=== PATIENT | female | born 1930 | race Caucasian/White ===

== ENCOUNTER → 2017-08-19 13:22 | Outpatient (CLI) | payer MEDICARE, OTHER | END | disposition home or self-care (01) | LOC: D.US 13:22 | DX: R10.9 Unspecified abdominal pain (principal); R30.0 Dysuria ==

== ENCOUNTER → 2018-07-27 16:39 | Outpatient (CLI) | payer MEDICARE, OTHER | END | disposition home or self-care (01) | LOC: D.LABREF 16:39 → D.RAD 16:39 | DX: N20.0 Calculus of kidney (principal) ==

== ENCOUNTER → 2018-07-27 18:11 | Outpatient (CLI) | payer MEDICARE, OTHER | END | disposition home or self-care (01) | LOC: D.LABREF 18:11 | DX: D72.829 Elevated white blood cell count, unspecified (principal); R31.9 Hematuria, unspecified ==

== ENCOUNTER → 2018-08-02 09:35 | Outpatient (CLI) | payer MEDICARE, OTHER | END | disposition home or self-care (01) | LOC: D.CT 09:30 | DX: N20.0 Calculus of kidney (principal) ==

== ENCOUNTER → 2018-09-12 09:58 | Outpatient (CLI) | payer MEDICARE, OTHER | END | disposition home or self-care (01) | LOC: D.CT 09:58 | DX: N20.0 Calculus of kidney (principal) ==

== ENCOUNTER → 2018-09-22 11:51 | Outpatient (CLI) | payer MEDICARE, OTHER | END | disposition home or self-care (01) | LOC: D.LABREF 11:51 | DX: N39.0 Urinary tract infection, site not specified (principal) ==

== ENCOUNTER 2018-09-29 08:54 | Inpatient (IN) | payer MEDICARE, OTHER ==
[2018-09-27 15:49] LABS: BASOPHILS 0.4 % (0-2); EOSINOPHILS 2.3 % (0-7); HEMATOCRIT 43.3 % (36.0-48.0); HEMOGLOBIN 14.1 g/dL (12-16); IMMATURE GRANULOCYTES 0.1 % (0-5); LYMPHOCYTES 33.1 % (15-50); MCH 29.1 pg (26.0-34.0); MCHC 32.6 g/dL (31.0-37.0); MCV 89.5 fL (80.0-100.0); MEAN PLATELET VOLUME 10.9 fL (7.4-10.4); MONOCYTES 8.4 % (2-11); NEUTROPHILS 55.7 % (40-80); PLATELET COUNT 218 10x3/uL (130-400); RBC 4.84 10x6/uL (4.00-5.40); RDW 14.8 % (11.5-14.5); WBC 8.3 10x3/uL (4.8-10.8)
[2018-09-27 16:00] LABS: APTT 30.8 SECONDS (22.8-39.4); CALCIUM 8.8 mg/dL (8.5-10.1); CARBON DIOXIDE 29.7 mmol/L (21.0-32.0); CREATININE - SERUM 1.1 mg/dL (0.6-1.3); INR 1.07 (0.85-1.17); POTASSIUM - SERUM 3.7 mmol/L (3.5-5.1); PROTIME 13.4 SECONDS (11.6-15.0)
[2018-09-29] VITALS (8 sets, daily range): BP systolic 132–166; BP diastolic 57–71; Ht 170.2 cm; Wt 71.8 kg
[~2018-09-29] VITALS: Ht 170.2 cm; Wt 71.8 kg
--- NOTE | ~2018-09-29 | HEMODYNAMI ---
PATIENT:JANNA PURCELL MEDICAL RECORD: [id number] : 32 LOCATION:[facility] ADMISSION DATE: 09/29/18 Generatedon:09/29/201812:17 Patient name: JANNA PURCELL Patient #: [id number] SSN: : Date of study: 09/29/2018 Page: Of Hemodynamic Procedure Report Patient Data Patient Demographics Procedure consent was obtained First Name: JANNA Gender: Female Last Name: BINH : 1930 Patient #: [id number] Age: 88 year(s) Race: Unknown Additional ID: [id number] Contact details Address: [address] [place] [address] State: [place] City: [place] Zip code: [address] Past Medical History Allergies Allergen Reaction Date Comments Reported Demerol Other 09/29/2018 Admission Admission Data Admission Date: 09/29/2018 Admission Time: 8:54 Procedure Procedure Types Cath Procedure Peripheral Cath Diagnostic Procedure Miscellaneous Procedure Description Procedure Date Procedure Date: 09/29/2018 Procedure Start Time: 11:48 Procedure End Time: 12:16 Procedure Staff Name Function José Manuel Negron MD Performing Physician Bernice Gracia Monitor Wilbur Trujillo RT Scrub Hiral Parsons RN Nurse Procedure Data Cath Procedure Fluoroscopy Diagnostic fluoroscopy Total fluoroscopy Time: 4.9 time: 4.9 min min Diagnostic fluoroscopy Total fluoroscopy dose: 59 dose: 59 mGy mGy Contrast Material Contrast Material Type Amount (ml) Isovue 300 15 Procedure Medications Medication Administration Route Dosage Heparin Flush Bag added to field 1 bags (1000units/500ml NS) Lidocaine 1% added to field 20 unlisted medication 1 Versed I.V. 1 mg Fentanyl I.V. 50 mcg Versed I.V. 1 mg Fentanyl I.V. 50 mcg Hemodynamics Rest Heart Rate: 56 (bpm) Snapshots Pre Cath Intra NCS Post Cath Vital Signs Time Heart Resp SPO2 etCO2 NIBP (mmHg) Rhythm Pain Sedation Rate (ipm) (%) (mmHg) Status Level (bpm) 11:22:14 57 8 100 44.4 Measuring NSR 0 (11) 10(A) , No pain 11:23:19 61 20 100 39.9 187/94(120) NSR 0 (11) 10(A) , No pain 11:28:18 56 11 100 33.9 Measuring NSR 0 (11) 10(A) , No pain 11:28:43 55 12 100 36.1 180/78(115) NSR 0 (11) 10(A) , No pain 11:33:07 48 10 100 34.6 181/79(153) NSR 0 (11) 10(A) , No pain 11:37:35 49 13 99 30.8 175/78(117) NSR 0 (11) 10(A) , No pain 11:42:35 51 13 100 44.4 Measuring NSR 0 (11) 10(A) , No pain 11:43:05 46 13 100 41.4 169/70(96) NSR 0 (11) 10(A) , No pain 11:47:32 71 12 100 30.1 172/81(107) NSR 0 (11) 8(A) , No pain 11:51:48 46 19 100 18 155/70(84) NSR 0 (11) 8(A) , No pain 11:56:47 50 22 100 1.5 Measuring NSR 0 (11) 8(A) , No pain 11:56:59 57 14 100 39.8 157/67(125) NSR 0 (11) 8(A) , No pain 12:01:21 60 10 100 42.1 161/77(94) NSR 0 (11) 8(A) , No pain 12:05:47 48 32 100 35.3 178/68(129) NSR 0 (11) 8(A) , No pain 12:10:16 49 11 99 24 152/58(83) NSR 0 (11) 8(A) , No pain 12:14:36 60 10 100 27 164/75(115) NSR 0 (11) 8(A) , No pain Medications Time Medication Route Dose Verified Delivered Reason Notes Effe ctiveness by by 11:28:57 Heparin Flush added 1 José Manuel Georges used for Bag to bags Jamil Negron MD procedure (1000units/500ml field NS) 11:29:09 Lidocaine 1% added 20ml José Manuel Georges for local to vial Jamil Negron MD anesthetic field 11:29:34 cefepime iv 1 gm José Manuel Blackman Per Issa Negron RN physician 11:45:30 Versed I.V. 1 mg José Manuel Blackman for Issa Negron RN sedation 11:45:50 Fentanyl I.V. 50 José Manuel Blackman for mcg Issa Negron RN sedation 12:00:19 Versed I.V. 1 mg José Manuel Blackman for Issa Negron RN sedation 12:00:27 Fentanyl I.V. 50 José Manuel Blackman for mcg Issa Negron RN sedation Procedure Log Time Note 11:11:40 Hiral Parsons RN sent for patient. Start room use. 11:11:45 Time tracking: Regular hours (M-F 7:00 - 5:00) 11:11:56 Plan of Care:Hemodynamics will remain stable., Cardiac rhythm will remain stable., Comfort level will be maintained., Respiratory function will remain adequate., Patient/ family verbilizes understanding of procedure., Procedure tolerated without complication., Recovers from procedure without complications.. 11:12:11 Patient received from Outpatients to IR Alert and oriented. Tansferred to table in Prone position. 11:12:13 Warm blankets applied on for patient comfort. 11:12:15 Correct patient and procedure confirmed by team. 11:12:19 Signed procedure consent form obtained from patient. 11:12:21 ECG and BP/O2 sat monitors applied to patient. 11:12:29 Full Disclosure recording started 11:12:31 - 11:13:38 H&P Date Dictated: 09/29/2018 Within 30 days and on chart.. 11:13:41 Pre-procedure instructions explained to patient. 11:13:42 Pre-op teaching completed and patient verbalized understanding. 11:18:23 Family in waiting room. 11:18:34 Patient NPO since Midnight. 11:18:52 Patient allergic to Demerol and influenza virus vaccines, AND PNEUMONIA VACCINE. 11:20:05 Is the patient allergic to Iodine/contrast media? No. 11:20:09 Is patient on blood thinner?No 11:20:14 Patient diabetic? No. 11:20:24 Vital chart was started 11:20:35 Sterile Angiographic Pack opened to sterile field. 11:20:38 Baseline sample Acquired. 11:20:53 ----Pre-sedation anethsthesia assessment.---- 11:20:59 Snore? Yes 11:21:02 Sleep apnea? No 11:21:06 Deviated septum? No 11:21:09 Opens mouth fully? Yes 11:21:12 Sticks out tongue? Yes 11:21:23 Dentures? Yes in tight 11:22:00 IV patent on arrival in right hand with 0.9% NaCl at O. 11:22:21 Right LUMBAR was prepped with chlora-prep and draped in sterile fashion . 11:22:45 Alarms reviewed . 11:22:46 Sharps counted by scrub and verified. 11:23:29 Use device set IR Diagnostic 11:23:34 Bag Decanter (2002S) opened to sterile field. 11:23:41 Tegaderm 4 x 4 (1626W) opened to sterile field. 11:28:57 Heparin Flush Bag (1000units/500ml NS) 1 bags added to field was administered by José Manuel Negron MD; used for procedure; 11:29:09 Lidocaine 1% 20ml vial added to field was administered by José Manuel Negron MD; for local anesthetic; 11:29:34 cefepime 1 gm iv was administered by Hiral Parsons RN; Per physician; 11:29:40 GLIDE CATHETER 5FR ANGLED 65cm (CG507) opened to sterile field. 11:29:42 CHIBA 22 X 15 needle opened to sterile field. 11:29:43 KIT, INTRODUCER ACCUSTICK II W/C ([id number]) opened to sterile field. 11:44:07 Physician arrived 11:44:08 --------ALL STOP TIME OUT------ 11:44:09 Final Timeout: patient, procedure, and site verified with staff and physician. All members of the team are in agreement. 11:45:20 Lumbar site verified by team. 11:45:30 Versed 1 mg I.V. was administered by Hiral Parsons RN; for sedation; 11:45:38 Sedation plan: IV Moderate Sedation Medication:Versed, Fentanyl, Lidocaine 11:45:50 Procedure started. 11:45:50 Fentanyl 50 mcg I.V. was administered by Hiral Parsons RN; for sedation ; 11:48:53 Local anesthetic to Lumbar area with Lidocaine 1% by José Manuel Negron MD.INITIAL ACCESS ONLY 11:49:08 NITINOL .018 80cm wire ([id number]) opened to sterile field. 11:51:27 CHIBA 22 X 15 needle opened to sterile field. 11:53:01 CHIBA NEEDLE IS USED TO ACCESS THE RIGHT KIDNEY. 11:54:19 The nitrex wire is used thru the chiba needle to access the right kidney. 11:58:12 GLIDE WIRE GT DOUBLE ANGLE .018 ([id number]) opened to sterile field. 12:00:19 Versed 1 mg I.V. was administered by Hiral Parsons RN; for sedation; 12:00:27 Fentanyl 50 mcg I.V. was administered by Hiral Parsons RN; for sedation ; 12:00:40 The glidewire gt is used to manuver down the right ureter into the bladder. 12:00:44 Micropuncture VSI 4FR kit opened to sterile field. 12:02:19 GLIDE WIRE Angled Super Stiff 180cm ([id number]) opened to sterile field. 12:06:00 The .035stiff glidewire is inserted in thru the micro introducer system , into the bladder. 12:07:43 The micro system is removed over the wire and a 5fr. glide cath is placed from rt.kidney into bladder. 12:07:52 Procedure ended.(Physican Out) 12:08:58 Fluoroscopy time 04.90 minutes. 12:09:05 Flurop Dose total: 59 12:09:05 Fluoroscopy dose: 59 mGy 12:09:16 Contrast amount:Isovue 300 15ml. 12:09:19 Sharps counted by scrub and verified . 12:09:51 Post-op/insertion site Right Lumbar area dressed using a 4 x 4 and Tegaderm with catheter in right kidney. 12:10:52 Post procedure instruction explained to patient.Patient verbalizes understanding. 12:10:54 Patient needs reinforcement of post procedure teaching. 12:13:09 Procedure and supply charges have been captured, reviewed, submitted an d are correct. 12:14:39 See physician's report for complete and final results. 12:16:20 Report given to Outpatients. 12:16:32 Patient transfered to Outpatients with Stretcher. 12:16:43 Procedure ended. 12:16:43 Full Disclosure recording stopped 12:17:13 Vital chart was stopped Device Usage Item Name Manufacture Quantity Catalog Hospital Part Current Minim al Lot# / Number Charge Number Stock Stock Serial# Code Bag Decanter Microtek 1 2001S [id number] 84553 [id number] 5 () Medical Inc. Sterile Cardinal 1 [id number] 422228 239496 5 Angiographic Health Pack Tegaderm 4 x 3M 1 1626W [id number] 468298 251661 5 4 (1626W) GLIDE Terumo 1 [id number] 592067 397057 5 CATHETER 5FR ANGLED 65cm (CG507) CHIBA 22 X 15 [employer] 2 [id number] 693170 782535 5 [id number] needle [id number] KIT, Charlton 1 [id number] 868982 647176 629964 5 [id number] INTRODUCER Scientific ACCUSTICK II W/C ([id number]) NITINOL .018 Medtronic 1 [id number] 519462 341069 5 80cm wire ([id number]) GLIDE WIRE GT Terumo 1 [id number] 632415 556816 5 DOUBLE ANGLE .018 ([id number]) Micropuncture VSI VASCULAR 1 7266V 805864 916329 5 VSI 4FR kit SOLUTIONS GLIDE WIRE Terumo 1 [id number] 502868 329048 5 Angled Super Stiff 180cm ([id number]) Signature Audit [place] Stage Time Signature Unsigned Intra-Procedure 09/29/2018 Bernice 12:17:10 PM Basil Signatures Monitor : Bernice Signature : Basil Date : Time : [facility] [address] [place] [address]
[~2018-09-29 08:54] MED LIST: GABAPENTIN100 MG PO; OMEPRAZOLE40 MG PO; TENORMIN25 MG PO; XANAX0.5 MG PO; ZOCOR40 MG PO; ZOLOFT100 MG PO; ZYRTEC10 MG PO
--- NOTE | 2018-09-29 20:17 | NUR ---
BOYD CATHETER DC'D IN OR. 300CC EMPTIED FROM BAG DEREK ROMORN
--- NOTE | 2018-09-29 20:53 | NUR ---
CONSULTED ANESTHESIA REGARDING ELEVATED BLOOD PRESSURE 193/85. VERBAL ORDERS RECEIVED FROM LAZARA GIMENEZ CRNA / DR COOK TO ADMINISTER HYDRALAZINE 10MG X1 IN PACU NOW. ORDERS RECEIVED AND IMPLEMENTED. WILL CONTINUE TO MONITOR.
--- NOTE | 2018-09-29 21:13 | NUR ---
PT ARRIVED ON UNIT VIA STRETCHER ESCORTED BY OR NURSE. TRANSFERRED TO BED AND POSITIONED FOR COMFORT. VITALS STABLE. SIGNED OFF WITH OR NURSE.
--- NOTE | 2018-09-29 21:36 | NUR ---
HS MEDICATIONS GIVEN TO INCLUDE MEDICATION FOR PAIN FOR C/O SEVERE PAIN AT 9/10. WILL MONITOR FOR EFFECTIVENESS. FAMILY MEMBERS ARE AT BEDSIDE.
--- NOTE | 2018-09-29 21:50 | NUR ---
PT USED BEDPAN AND VOIDED 100 ML OF BLOODY URINE...HAD DIFFICULTY TURNING DUE TO PAIN. REPLACED BOYD CATHETER 16F PER NEW ORDER WITH IMMEDIATE RETURN OF BLOODY URINE. WILL MONITOR [facility].
--- NOTE | 2018-09-29 23:31 | NUR ---
POST OP VITALS REMAIN STABLE. PT RESTING QUIETLY AT THIS ASSESSMENT.
--- NOTE | 2018-09-30 02:17 | NUR ---
ASSESSED, PT IS ASLEEP WITH EASY RESPIRATIONS AND O2 IN PLACE ORDERED. NO DISTRESS NOTED.
[2018-09-30 05:53] VITALS: BP 109/55; BP 140/80
[2018-09-30 07:30] VITALS: BP 120/50
--- NOTE | 2018-09-30 08:10 | NUR ---
PATIENT RESTING WITH PAIN TOLERABLE NOW WITH NORCO. NEPHROSTOMY TUBE WITH BLOODY DRAINAGE, BOYD WITH BLOOD TINGED URINE.
--- NOTE | 2018-09-30 08:38 | OP ---
PATIENT NAME: JANNA PURCELL MEDICAL RECORD: [id number] :32 LOCATION:[id number] ADMISSION DATE:09/29/18 SURGEON: ULICES LOMAX MD DATE OF OPERATION: 09/29/2018 SURGEON: Ulices Lomax MD ANESTHESIA: General anesthesia byKady. PREOPERATIVE DIAGNOSIS: Right lower pole renal stone, 17 mm. PROCEDURES: Cystoscopy, right percutaneous nephrolithotomy. FINDINGS: Radiolucent renal stones. Stones are small stones clustered in the lower pole bennie. SPECIMENS: Right renal stone. ESTIMATED BLOOD LOSS: Minimal. CLINICAL HISTORY: This is an 88-year-old female who was found to have a large right lower pole renal stone. It was reported as being 17 mm in size on the CT scan. I cultured her urine and it showed only mixed organisms. She has no fever and no signs of pyelonephritis. She does have some episodes of right flank pain. The stone was visible on CT, but not visible on KUB. I then alkalinized her urine, thinking that this might be a uric acid stone. The urine pH reached 7.0 during the treatment time, but the latest CT 1 month later showed that the stone size was unchanged. Therefore, we are proceeding with a right PCNL to remove the stone entirely. She does live alone. She has a sister who lives next door. The plan was for her sister to take care of her postoperatively. She was going to be a 23-hour stay. However, it was told to me just prior to her surgery that her family has taken off on a cruise. Therefore, she would be alone at home. I will be keeping her in the hospital until we can have her nephrostomy tube removed and she no longer needs dressing changes on a frequent basis. SHE IS ALLERGIC TO DEMEROL, PNEUMONIA VACCINE, AND FLU VACCINE. She was given Ancef correctional nurse to the OR. Earlier today, Dr. Negron placed a right nephroureteral access through a mid pole access. DESCRIPTION OF PROCEDURE: The patient was given induction of general anesthesia while in supine position on the stretcher. She was then placed in the frogleg position and prepped and draped. A cystoscope was inserted into the bladder and using grasping forceps, the distal end of the nephroureteral stent was brought out through the urethral meatus. This will allow us to clamp the wire, which we insert from above to prevent its backward migration and eventual loss of the access tract. Once the nephroureteral catheter distal end was brought out through the urethra, we inserted a 16-P[place] Islander Christopher catheter to drain the bladder during the surgery. The patient was then turned into the prone position on the Ac frame. All pressure points were padded. She was then prepped and draped. An Amplatz Super Stiff wire was placed through the nephroureteral catheter lumen. It then came out through the urethral meatus and the circulating nurse placed a hemostat on this wire. This prevented loss of the access tract by backwards migration of the wire. The nephroureteral catheter was then removed entirely. A 1-cm incision was made on either side of the wire on the skin. The dual-lumen catheter was then inserted down to the proximal ureter. Through the second lumen, we inserted a sensor wire down into the OPERATIVE REPORT [id number] JANNA PURCELL. This acted as a safety wire. The nephroureteral catheter was then removed, leaving the [address] The safety wire was clamped to the drapes. We worked over the Super Stiff wire. Over the Super Stiff wire, we placed our NephroMax balloon dilator. This was placed with the tip near the UP junction. The tract was then dilated with 20 atmospheres of pressure and the 30-P[place] Islander working sheath was placed down over the balloon into the renal pelvis. The balloon was then deflated completely and removed entirely. We then placed our nephroscope down. Without any guidance from fluoroscopy as we could not see any radiodense stones we had to search every bennie in turn. I started at the upper pole bennie, then moved to the lateral mid pole calices. These were all free of stones. Finally, in the lower pole bennie we identified the stone cluster. The stones themselves are quite small, but they form a very large cluster which collectively adds up to 17 mm in diameter. The Armenian LithoClast ultrasonic probe was introduced and all the stone particles were removed entirely. The suctioning action of the Armenian lithoclast was used to clean the kidney out. The stone particles are indeed so fine that our stone catcher on the Armenian LithoClast did not catch most of them. At the end of the case, we only had a small amount of dust in the bottom of the catching container to send for stone analysis. Once she was stone free by nephroscopy, we then removed the nephroscope. Over the Super Stiff wire, we inserted a 24-P[place] Islander Malecot nephrostomy tube. Once the tube was in correct position, the working sheath, the stylet for the Malecot nephrostomy tube, the safety wire and the working wire of the Amplatz Super Stiff wire was removed entirely. Fluoroscopy revealed that the Malecot nephrostomy tube was in correct position within the renal pelvis. The tube was sutured to the skin using 2-0 nylon as a drain suture. Another 2-0 nylon stitch was used to close the skin around the drain. Dressings consisting of 4 x 4 gauze and an ABD pad were then applied. The drain itself was put to bag drainage. The patient was then awakened and brought to the recovery room. The Christopher catheter it should be noted was removed prior to turning the patient back into the supine position on the stretcher. TRANSINT:[id number] Voice Confirmation ID: [id number] DOCUMENT ID: [id number] ULICES LOMAX MD at 0838 CC: [id number] DICTATION DATE: 09/29/181923 ADA ACCOMMODATION CONSULTANT: 09/29/182231 ADM IN [facility] [address] [place] [address]
[2018-09-30 12:32] VITALS: BP 131/60
[2018-09-30 13:37] VITALS: BP 101/44
[2018-09-30 15:45] LABS: BASOPHILS 0.1 % (0-2); EOSINOPHILS 0.2 % (0-7); HEMATOCRIT 40.5 % (36.0-48.0); HEMOGLOBIN 12.7 g/dL (12-16); IMMATURE GRANULOCYTES 0.2 % (0-5); LYMPHOCYTES 21.2 % (15-50); MCH 28.3 pg (26.0-34.0); MCHC 31.4 g/dL (31.0-37.0); MCV 90.4 fL (80.0-100.0); MEAN PLATELET VOLUME 11.2 fL (7.4-10.4); MONOCYTES 11.4 % (2-11); NEUTROPHILS 66.9 % (40-80); PLATELET COUNT 199 10x3/uL (130-400); RBC 4.48 10x6/uL (4.00-5.40); RDW 14.9 % (11.5-14.5)
[2018-09-30 17:45] VITALS: BP 126/63
--- NOTE | 2018-09-30 19:15 | NUR ---
RECEIVED CARE FROM DAY NURSE. LYING IN BED WITH EYES CLOSED. RESP EVEN AND UNLABORED. CALL LIGHT AT SIDE. IV SL TO RIGHT HAND.
[2018-09-30 20:00] VITALS: BP 118/60
[2018-10-01 00:41] VITALS: BP 129/81
[2018-10-01 05:25] VITALS: BP 140/70
--- NOTE | 2018-10-01 07:48 | NUR ---
AWAKE AND ALERT. ORIENTED X3. C/O NECK BEING STIFF THIS AM. LUNGS ARE CLEAR BILATERALLY BUT DIMINISHED ON LEFT SIDE. NO COUGH NOTED. SKIN IS INTACT WITHOUT REDNESS EXCEPT RIGHT NEPHROSTOMY TUBE IN PLACE WITH BLOODY DRAINAGE NOTED. DRESSING TO SAME DRY AND INTACT. BOYD PATETN WITH BLOOD TINGED URINE WHICH APPEARS TO BE CLEARING SLIGHTLY. SCD'S IN PLACE. DENIES NEEDS. SL TO RIGHT HAND PATENT WITHOUT REDNESS AT INSERTION SITE.
[2018-10-01 08:57] VITALS: BP 122/60
--- NOTE | 2018-10-01 10:30 | NUR ---
AMBULATED 40 FEET WITH 2 PERSON MIN ASSIST. GAIT IS UNSTEADY AT THIS TIME. POSITIONED IN CHAIR AT SIDE OF BED.
--- NOTE | 2018-10-01 11:58 | NUR ---
DR. LOMAX HERE. D/C NEPHROSTOMY TUBE, DRESSING APPLIED TO SAME. BOYD D/C WITH TIP INTACT WITHOUT DIFFICULTY. REPOSITIONED IN BED FOR COMFORT.
[2018-10-01 12:55] VITALS: BP 109/60
--- NOTE | 2018-10-01 15:00 | NUR ---
ATTEMPTED TO AMBULATE WITH 2 PERSON ASSIST. C/O PAIN TO LEFT ANKLE. AMBULATED 10 FEET MOD ASSIST OF 2. POSITIONED IN CHAIR AT BEDSIDE. WILL MONITOR.
--- NOTE | 2018-10-01 19:15 | NUR ---
RECEIVED CARE FROM DAY NURSE. LYING IN BED WITH EYES CLOSED. RESP EVEN AND UNLABORED. CALL LIGHT AT SIDE. IV SL TO RIGHT HAND.
--- NOTE | 2018-10-01 19:18 | NUR ---
ATE ALMOST ALL OF SUPPER. UP TO BR WITH ONE PERSON MOD ASSIST. VOIDED ABOUT 200CC BLOODY URINE. DRESSING TO RIGHT MID BACK DRY AND INTACT. NO CHANGES NOTED. DENIES NEEDS.
[2018-10-01 20:00] VITALS: BP 156/57
[2018-10-02] VITALS: BP 145/61
--- NOTE | 2018-10-02 00:12 | NUR ---
RN NOTE: PT RESTING QUIETLY IN LOW TEJADA'S POSITION. AGREE WITH SALES ESTIMATOR ASSESSMENT. SIDE RAILS UP X2 FOR SAFETY.
[2018-10-02 03:00] VITALS: BP 154/66
--- NOTE | 2018-10-02 05:00 | NUR ---
DRESSING CHANGE TO OLD NEPHROSTOMY SITE DUE TO OLD DRESSING COMING OFF.
--- NOTE | 2018-10-02 07:30 | NUR ---
INCONTINENT OF URINE. UP TO BR WITH MOD ASSIST OF ONE. LINENS CHANGED PER STAFF. SKIN CARE PER STAFF. VOIDED WITHOUT DIFFICULTY, STILL SOME BLOOD TINGED URINE. REPOSITIONED IN BED FOR COMFORT.
--- NOTE | 2018-10-02 08:15 | NUR ---
AWAKE AND ALERT. UP TO BR IWTH ONE PERSON MIN ASSIST. VOIDED WITHOUT DIFFICULTY. REPOSITIONED IN BED FOR COMFORT. LUNGS ARE CLEAR BILATERALLY, NO COUGH NOTED. SKIN IS INTACT WITHOUT REDNESS. SL TO RIGHT HAND PATENT WITHOUT REDNESS AT INSERTION SITE. DENIES NEEDS. REFUSED OFFER TO BE UP IN CHAIR FOR BREAKFAST.
[2018-10-02 09:21] VITALS: BP 154/71
--- NOTE | 2018-10-02 10:00 | NUR ---
ATE MOST OF BREAKFAST. RESTING QUIETLY IN BED. DENIES NEEDS.
[2018-10-02] MEDS ORDERED: HYDROCODON-ACE1 EAC7 PO (11:57)
--- NOTE | 2018-10-02 13:04 | NUR ---
DISCHARGED TO HOME WITH FAMILY AMBULATORY. DISCHARGE INSTRUCTIONS GIVEN BOTH VERBALLY AND WRITTEN. ALL QUESTIONS ANSWERED. PATIENT AND DAUGHTER VERBALIZED UNDERSTANDING OF SAME. NEEDED PRESCRIPTIONS GIVEN TO PATIENT. SL TO RIGHT HAND D/C WITH CATHETER INTACT. ALL BELONGINGS WITH PATIENT.
--- NOTE | 2018-10-03 16:58 | MORECARE ---
CASE MANAGEMENT DISCHARGE SUMMARY PATIENT: JANNA PURCELL UNIT: [id number] ADM DATE: 09/29/18 AGE: 88 : 31 SEX: F ROOM/BED: D.2223 AUTHOR: ISABELLA LAIRD PHYSICIAN: REFERRING PHYSICIAN: ULICES LOMAX MD DATE OF SERVICE: 10/03/18 Discharge Plan Patient Name: [facility] PUR[facility]LL [facility] [facility] 1930 Planned Disposition: Anticipated Discharge Date: Discharge Date: 10/02/2018 Expected LOS: 0 Initial Reviewer: [email or web address] Initial Review Date: 10/03/2018 Generated: 10/03/18 5:58 pm Patient Name: JANNA PURCELL Page [phone] at 1658 All edits/amendments must be made on the electronic document DICTATION DATE: 10/03/181656 COUNTERPERSON: PATTI 10/03/181656 RPT#: [id number] DC DATE:10/02/18 STATUS: DIS IN [facility] [address] [place] [address] END OF REPORT
[2018-10-05 17:10] LABS: CALCULI - CA OXALATE DIHYDRATE 25 % (()); CALCULI - CA OXALATE MONOHYDR 40 % (()); CALCULI - CALCIUM PHOSPHATE 35 % (()); CALCULI - COLOR Tan (()); CALCULI - COMMENT Note: (()); CALCULI - WEIGHT 94.5 mg (())
== END 2018-10-02 13:06 | disposition home or self-care (01) | DRG 661 ==
LOC: D.OPS 08:54 → D.PAN 11:30 → D.OPS 13:30 → D.MS 19:12
PROVIDERS: Anesthesiology; General Practice; ADMIT Urology
PROC: 0TN Urinary System, Release (ICD-10-PCS; 2018-09-29)
PROC: 0T133JD Bypass Right Kidney Pelvis to Cutaneous with Synthetic Substitute, Percutaneous Approach (ICD-10-PCS; principal; 2018-09-29 11:30)
DX: N20.0 Calculus of kidney (principal)

== ENCOUNTER 2018-10-09 22:11 | Inpatient (IN) | payer MEDICARE, OTHER ==
[~2018-10-09] VITALS: Ht 170.2 cm; Wt 69.5 kg
[~2018-10-09 22:11] MED LIST changes: +HYDROCODON-ACE1 EAC7 PO
[2018-10-09 22:50] LABS: APPEARANCE TURBID (CLEAR); BACTERIA NONE SEEN /hpf (NONE SEEN); BILIRUBIN NEGATIVE (NEGATIVE); COLOR RED (YELLOW); EPITHELIAL CELLS NSEEN /hpf (0-5); GLUCOSE NEGATIVE (NEGATIVE); KETONE NEGATIVE (NEGATIVE); NITRITE NEGATIVE (NEGATIVE); PROTEIN 2+ mg/dL (NEGATIVE); RED CELLS - URINE >50 /hpf (0-5); UROBILINOGEN NORMAL (NORMAL); WHITE CELLS - URINE NSEEN /hpf (0-5)
[2018-10-09 22:50] LABS: BASOPHILS 0.2 % (0-2); EOSINOPHILS 1.8 % (0-7); HEMATOCRIT 40.3 % (36.0-48.0); HEMOGLOBIN 12.9 g/dL (12-16); IMMATURE GRANULOCYTES 0.3 % (0-5); LYMPHOCYTES 33.5 % (15-50); MCH 28.4 pg (26.0-34.0); MCV 88.6 fL (80.0-100.0); MEAN PLATELET VOLUME 10.8 fL (7.4-10.4); MONOCYTES 9.6 % (2-11); NEUTROPHILS 54.6 % (40-80); PLATELET COUNT 212 10x3/uL (130-400); RBC 4.55 10x6/uL (4.00-5.40); RDW 14.5 % (11.5-14.5); WBC 9.7 10x3/uL (4.8-10.8)
[2018-10-09 23:03] LABS: ALBUMIN 3.2 g/dL (3.4-5.0); ANION GAP 10.5 mmol/L (8-16); BILIRUBIN - TOTAL 0.3 mg/dL (0.2-1.3); CALCIUM 8.8 mg/dL (8.5-10.1); CARBON DIOXIDE 28.9 mmol/L (21.0-32.0); POTASSIUM - SERUM 3.4 mmol/L (3.5-5.1); PROTEIN - SERUM 6.8 g/dL (6.4-8.2)
[2018-10-10] VITALS (7 sets, daily range): BP systolic 116–159; BP diastolic 54–74; Ht 170.2 cm; Wt 69.5 kg
[2018-10-10 00:53] LABS: INR 1.1 (0.85-1.17); PROTIME 13.7 SECONDS (11.6-15.0)
[2018-10-10 05:57] LABS: HEMATOCRIT 40.9 % (36.0-48.0)
[2018-10-10 17:00] LABS: HEMATOCRIT 39.6 % (36.0-48.0); HEMOGLOBIN 12.5 g/dL (12-16)
[2018-10-11] VITALS: BP 110/55
[2018-10-11 04:00] VITALS: BP 150/79
[2018-10-11 05:32] LABS: BASOPHILS 0 % (0-2); EOSINOPHILS 0 % (0-7); HEMATOCRIT 41.9 % (36.0-48.0); IMMATURE GRANULOCYTES 0.2 % (0-5); MCH 28.2 pg (26.0-34.0); MEAN PLATELET VOLUME 11.4 fL (7.4-10.4); MONOCYTES 1.8 % (2-11); PLATELET COUNT 196 10x3/uL (130-400); RBC 4.61 10x6/uL (4.00-5.40); RDW 14.6 % (11.5-14.5); WBC 8.8 10x3/uL (4.8-10.8)
[2018-10-11 05:47] LABS: MCV 90.9 fL (80.0-100.0)
[2018-10-11 05:55] LABS: ALBUMIN 2.6 g/dL (3.4-5.0); BILIRUBIN - TOTAL 0.23 mg/dL (0.2-1.3); CALCIUM 8.7 mg/dL (8.5-10.1); CARBON DIOXIDE 26.5 mmol/L (21.0-32.0); CREATININE - SERUM 1.2 mg/dL (0.6-1.3); PROTEIN - SERUM 6.3 g/dL (6.4-8.2)
[2018-10-11 06:05] LABS: ANION GAP 11.5 mmol/L (8-16)
[2018-10-11 08:00] VITALS: BP 123/69
[2018-10-11 12:06] VITALS: BP 117/61
[2018-10-11 15:17] VITALS: BP 136/60
[2018-10-11 16:59] LABS: HEMATOCRIT 38.5 % (36.0-48.0); HEMOGLOBIN 12.2 g/dL (12-16)
[2018-10-11 20:00] VITALS: BP 122/75
[2018-10-12] VITALS: BP 146/61
[2018-10-12 04:00] VITALS: BP 153/66
[2018-10-12 05:40] LABS: BASOPHILS 0 % (0-2); EOSINOPHILS 0 % (0-7); HEMATOCRIT 37.9 % (36.0-48.0); HEMOGLOBIN 11.9 g/dL (12-16); IMMATURE GRANULOCYTES 0.3 % (0-5); LYMPHOCYTES 5.2 % (15-50); MCH 27.9 pg (26.0-34.0); MCHC 31.4 g/dL (31.0-37.0); MEAN PLATELET VOLUME 11.6 fL (7.4-10.4); MONOCYTES 4.4 % (2-11); NEUTROPHILS 90.1 % (40-80); PLATELET COUNT 198 10x3/uL (130-400); RBC 4.26 10x6/uL (4.00-5.40); RDW 14.4 % (11.5-14.5)
[2018-10-12 05:46] LABS: WBC 11.1 10x3/uL (4.8-10.8)
[2018-10-12 06:17] LABS: ALBUMIN 2.7 g/dL (3.4-5.0); ANION GAP 14.3 mmol/L (8-16); BILIRUBIN - TOTAL 0.17 mg/dL (0.2-1.3); CALCIUM 8.6 mg/dL (8.5-10.1); CARBON DIOXIDE 24.2 mmol/L (21.0-32.0); POTASSIUM - SERUM 3.5 mmol/L (3.5-5.1); PROTEIN - SERUM 6.2 g/dL (6.4-8.2)
[2018-10-12 08:58] VITALS: BP 156/79
[2018-10-12 11:55] VITALS: BP 171/68
[2018-10-12] MEDS ORDERED: CEFUROXIME500 MG PO (13:01)
[2018-10-12] MEDS ORDERED: MEDROL DOSE PACK4 MG PO (13:02)
--- NOTE | 2018-10-12 17:06 | MORECARE ---
CASE MANAGEMENT DISCHARGE SUMMARY PATIENT: JANNA PURCELL UNIT: [id number] ADM DATE: 10/10/18 AGE: 88 : 31 SEX: F ROOM/BED: D.2116 AUTHOR: ISABELLA LAIRD PHYSICIAN: REFERRING PHYSICIAN: CHERI WEST MD DATE OF SERVICE: 10/12/18 Discharge Plan Patient Name: [facility]ANNA PURCELL [facility] [facility] 1930 Planned Disposition: Home Anticipated Discharge Date: 10/12/18 Discharge Date: 10/12/2018 Expected LOS: 2 Initial Reviewer: [email or web address] Initial Review Date: 10/12/2018 Generated: 10/12/18 6:05 pm DCPIA - Discharge Planning Initial Assessment Updated by [email or web address]: Barron Donaldson on 10/12/18 5:05 pm * Is the patient Alert and Oriented? Yes * How many steps to enter\exit or inside your home? NONE * PCP DR WEST * Pharmacy [facility] * Preadmission Environment Home Alone * ADLs Independent * Equipment None * Other Equipment NO MEDICAL EQUIPMENT PROVIDER PREFERENCE * List name and contact numbers for known caregivers / representatives who currently or will assist patient after discharge: CANDICE NIEVES, SON, * Verbal permission to speak to the caregivers and representatives has been obtained from the patient. Yes * Community resources currently utilized None * Please name any agencies selected above. NONE * Additional services required to return to the preadmission environment? No * Can the patient safely return to the preadmission environment? Yes * Has this patient been hospitalized within the prior 30 days at any hospital? No Patient Name: JANNA PURCELL Page [phone] at 1706 All edits/amendments must be made on the electronic document DICTATION DATE: 10/12/181704 HAY RAKE OPERATOR: PATTI 10/12/181704 RPT#: [id number] DC DATE:10/12/18 STATUS: DIS IN [facility] [address] [place] [address] END OF REPORT
--- NOTE | 2018-10-12 17:15 | MORECARE ---
CASE MANAGEMENT DISCHARGE SUMMARY PATIENT: JANNA PURCELL UNIT: [id number] ADM DATE: 10/10/18 AGE: 88 : 32 SEX: F ROOM/BED: D.5146 AUTHOR: EITAN,DOC PHYSICIAN: REFERRING PHYSICIAN: CHERI WEST MD DATE OF SERVICE: 10/12/18 Discharge Plan Patient Name: JANNA PURCELL Facility: [facility]:Mobile : 1930 Planned Disposition: Home Anticipated Discharge Date: 10/12/18 Discharge Date: 10/12/2018 Expected LOS: 2 Initial Reviewer: [email or web address] Initial Review Date: 10/12/2018 Generated: 10/12/18 6:14 pm Comments DCP- Discharge Planning Updated by [email or web address]: Barron Donaldson on 10/12/18 4:[address] Patient Name: JANNA PURCELL Admission Status: ER Accout number: [id number] Admission Date: 10-10-2018 : 1930 Admission Diagnosis:HEMATURIA, UNSPECIFIED Attending: CHERI WEST Current LOS: 2 Anticipated DC Date: 10-12-2018 Planned Disposition: Home Primary Insurance: MEDICARE A & B Discharge Planning Comments: CM MET WITH PT IN ROOM TO DISCUSS DISCHARGE PLANNING AND NEEDS. PT REPORTS LIVING AT HOME INDEPENDENTLY AND ALONE. PT HAS NO MEDICAL EQUIPMENT AND NO OUTSIDE SERVICES ASSISTING IN THE HOME. CM DISCUSSED AVAILABILITY OF HOME HEALTH, REHAB SERVICES AND MEDICAL EQUIPMENT. PT DENIES DISCHARGE NEEDS, REPORTS HER NEIGHBOR IS HERE TO PICK HER UP FOR DISCHARGE HOME TODAY. IMPORTANT MESSAGE FROM MEDICARE PROVIDED AND EXPLAINED. Mds Coordinator: Barron Donaldson DCPIA - Discharge Planning Initial Assessment Updated by [email or web address]: Barron Donaldson on 10/12/18 5:05 pm * Is the patient Alert and Oriented? Yes * How many steps to enter\exit or inside your home? NONE * PCP DR WEST * Pharmacy [facility] * Preadmission Environment Home Alone * ADLs Independent * Equipment None * Other Equipment NO MEDICAL EQUIPMENT PROVIDER PREFERENCE * List name and contact numbers for known caregivers / representatives who currently or will assist patient after discharge: CANDICE NIEVES, SON, * Verbal permission to speak to the caregivers and representatives has been obtained from the patient. Yes * Community resources currently utilized None * Please name any agencies selected above. NONE * Additional services required to return to the preadmission environment? No * Can the patient safely return to the preadmission environment? Yes * Has this patient been hospitalized within the prior 30 days at any hospital? No Coverage Notice Reviewer: [email or web address] Ariel Donaldson Notice Issued Date-Time: 10/12/2018 15:05 Notice Type: IM Discharge Notice Notice Delivered To: Patient Relationship to Patient: Chimney Supervisor Brick Name: Delivery Method: HAND - Hand Delivered Shannan Days: Prior Verbal Notification: Recipient Understood Notice: Yes Recipient Signature: Yes Med Rec Note Co-signed by Attending: Coverage Notice Comment: Last DP export: 10/12/18 4:05 p Patient Name: JANNA PURCELL Page [id number] at 1715 All edits/amendments must be made on the electronic document DICTATION DATE: 10/12/181713 INFORMATION TECHNOLOGY SECURITY ANALYST: PATTI 10/12/181713 RPT#: [id number] DC DATE:10/12/18 STATUS: DIS IN [facility] [address] [place] [address] END OF REPORT
== END 2018-10-12 15:23 | disposition home or self-care (01) | DRG 202 ==
LOC: D.ER 22:11 → D.M2 10-10 00:55 → D.EDHOLD 10-10 00:55 → D.M2 10-10 01:17
PROVIDERS: Emergency Medicine; ADMIT Family Medicine
DX: J20.9 Acute bronchitis, unspecified (principal); N13.30 Unspecified hydronephrosis; J01.90 Acute sinusitis, unspecified; M51.9 Unspecified thoracic, thoracolumbar and lumbosacral intervertebral disc disorder; R31.0 Gross hematuria; E11.9 Type 2 diabetes mellitus without complications; I10 Essential (primary) hypertension; E78.5 Hyperlipidemia, unspecified; Z87.891 Personal history of nicotine dependence

== ENCOUNTER → 2019-07-17 11:14 | Outpatient (CLI) | payer MEDICARE, OTHER ==
[2018-10-10 14:51] VITALS: BMI 23.9
[~2019-07-17 11:14] MED LIST changes: +CEFUROXIME500 MG PO; +MEDROL DOSE PACK4 MG PO
[2019-07-17 12:11] LABS: ANION GAP 9.1 mmol/L (8-16); CALCIUM 9.4 mg/dL (8.5-10.1); CARBON DIOXIDE 28.7 mmol/L (21.0-32.0); CREATININE - SERUM 0.9 mg/dL (0.6-1.3); POTASSIUM - SERUM 3.8 mmol/L (3.5-5.1)
[2019-07-17 12:31] LABS: BASOPHILS 0.2 % (0-2); EOSINOPHILS 1.4 % (0-7); HEMATOCRIT 44.2 % (36.0-48.0); IMMATURE GRANULOCYTES 0.2 % (0-5); LYMPHOCYTES 35.8 % (15-50); MCH 29.2 pg (26.0-34.0); MCHC 31.7 g/dL (31.0-37.0); MCV 92.1 fL (80.0-100.0); MEAN PLATELET VOLUME 11.6 fL (7.4-10.4); MONOCYTES 7.6 % (2-11); NEUTROPHILS 54.8 % (40-80); WBC 8.4 10x3/uL (4.8-10.8)
[2019-07-17 12:39] LABS: PLATELET COUNT 246 10x3/uL (130-400)
== END | disposition home or self-care (01) ==
LOC: D.CT 11:14
PROVIDERS: ATTEND Urology
DX: N19 Unspecified kidney failure (principal); Z87.442 Personal history of urinary calculi; R82.90 Unspecified abnormal findings in urine; R31.9 Hematuria, unspecified

== ENCOUNTER → 2019-07-17 18:16 | Outpatient (CLI) | payer MEDICARE, OTHER ==
[2018-10-10 14:51] VITALS: BMI 23.9
== END | disposition home or self-care (01) ==
LOC: D.LABREF 18:16
PROVIDERS: ATTEND Urology
DX: R31.9 Hematuria, unspecified (principal)

== ENCOUNTER 2019-09-21 08:42 | Day surgery (SDC) | payer MEDICARE, OTHER ==
[~2019-09-21] VITALS: Ht 170.2 cm; Wt 71.7 kg
[2019-09-21 08:58] LABS: BASOPHILS 0.3 % (0-2); EOSINOPHILS 1.4 % (0-7); HEMATOCRIT 45.4 % (36.0-48.0); HEMOGLOBIN 14.3 g/dL (12-16); IMMATURE GRANULOCYTES 0.1 % (0-5); LYMPHOCYTES 35.8 % (15-50); MCH 28.7 pg (26.0-34.0); MCHC 31.5 g/dL (31.0-37.0); MCV 91.2 fL (80.0-100.0); MEAN PLATELET VOLUME 11.3 fL (7.4-10.4); NEUTROPHILS 55.4 % (40-80); PLATELET COUNT 197 10x3/uL (130-400); RBC 4.98 10x6/uL (4.00-5.40); RDW 14.2 % (11.5-14.5); WBC 7.3 10x3/uL (4.8-10.8)
[2019-09-21 09:05] LABS: ANION GAP 8.9 mmol/L (8-16); CALCIUM 9.3 mg/dL (8.5-10.1); CREATININE - SERUM 0.9 mg/dL (0.6-1.3); POTASSIUM - SERUM 3.9 mmol/L (3.5-5.1)
[2019-09-21 10:42] VITALS: BP 148/71; Ht 170.2 cm; Wt 71.7 kg
--- NOTE | 2019-09-21 15:57 | NUR ---
1531-REC'D FROM RR. AWAKE AND ALERT,VSS. DENIES PAIN. REVIEWEED DISCHARGE CRITERIA. CL IN EASY REACH
--- NOTE | 2019-09-21 15:58 | NUR ---
1555-KUB SCHEDULED HERE ON Sep AT 0900
--- NOTE | 2019-09-21 15:58 | NUR ---
1540-FULL LIQUID TRAY TO ROOM.
--- NOTE | 2019-09-21 16:43 | NUR ---
1615- TOLERATED TRAY.DENIES PAIN. VSS. REMOVED IV FROM RIGHT HAND WITH CATH INTACT,DISPOSED INTO SHARPS. COVERED WITH GUAZE,SECURED WITH MEDIPORE TAPE.
--- NOTE | 2019-09-21 16:44 | NUR ---
1620-REVIEWED POST OPERATIVE INSTRUCTIONS AND FOLLOW [employer]. VERBALIZED UNDERSTANDING.
--- NOTE | 2019-09-21 16:45 | NUR ---
1625- ESCORTED OUT VIA W/C WITH DAUGHTER AND LAW AWAITING TO DRIVE HOME
--- NOTE | 2019-09-22 09:27 | OP ---
PATIENT NAME: JANNA PURCELL MEDICAL RECORD: [id number] :[birth year] LOCATION:.[facility] ADMISSION DATE: SURGEON: WAYNE LOMAX MD DATE OF OPERATION: 09/21/2019 SURGEON: Wayne Lomax MD ANESTHESIA: General anesthesia by Becka Flores CRNA PREOPERATIVE DIAGNOSIS: A 4-mm right lower pole renal stone. PROCEDURE: Right ESWL times 1250 shocks. FINDINGS: Radiodense right lower pole renal stone 4 mm in size. ESTIMATED BLOOD LOSS: None. CLINICAL HISTORY: This is an 89-year-old female who has episodes of right flank pain. On CT scan, she had a 4-mm stone in the right kidney. She wishes to have the stone treated. Due to the small size of the stone, she is not getting a stent inserted. She was given Ance[employer] contract design agent to the OR. DESCRIPTION OF PROCEDURE: The patient was placed on the treatment table. The stone was visualized in 2 planes. The patient was then given induction of general anesthesia. The stone was targeted with 1250 shocks. At that point, the stone had broken up visibly and we decided not to continue with further shocks. The patient was awakened and brought to the recovery room. I will see her in followup in 2 weeks' time with a KUB. TRANSINT:[id number] Voice Confirmation ID: [id number] DOCUMENT ID: [id number] WAYNE LOMAX MD at 0927 CC: [id number] DICTATION DATE: 09/21/19 1458 HISTOLOGY TEACHER: 09/21/19 2305 [facility] 09/21/19 [place] [address]
== END 2019-09-21 16:25 | disposition home or self-care (01) ==
LOC: D.OPS 08:42 → D.PAN 10:50 → D.OPS 11:00 → D.PAN 12:00 → D.OPS 16:25
PROVIDERS: Anesthesiology; ATTEND Urology
DX: N20.0 Calculus of kidney (principal); N30.01 Acute cystitis with hematuria; N39.41 Urge incontinence; I10 Essential (primary) hypertension

== ENCOUNTER → 2019-10-06 12:31 | Outpatient (CLI) | payer MEDICARE, OTHER ==
[2019-09-21 10:42] VITALS: BMI 24.3
== END | disposition home or self-care (01) ==
LOC: D.RAD 10-05 09:00
PROVIDERS: ATTEND Urology
DX: N20.0 Calculus of kidney (principal); N39.0 Urinary tract infection, site not specified

== ENCOUNTER → 2019-11-08 18:04 | Outpatient (CLI) | payer MEDICARE, OTHER ==
[2019-09-21 10:42] VITALS: BMI 24.3
== END | disposition home or self-care (01) ==
LOC: D.LABREF 18:04
PROVIDERS: ATTEND Urology
DX: N39.0 Urinary tract infection, site not specified (principal)